=== PATIENT | male | born 1965 | race Caucasian/White ===

== ENCOUNTER 2018-06-10 15:57 | Inpatient (IN) | payer MEDICARE ==
--- NOTE | 2018-06-10 16:48 | ED Physician Chart ---
ED Chief Complaint/HPI - Patient Information Date Seen:: 06/10/18 Time Seen:: 15:50 Chief Complaint:: AMS History of Present Illness:: onset x 2 days of AMS and ALOC; no report of trauma, LOC, H/As, S/T, neck pain, cough, C/P, SOB, Abd. Pain, A/N/V/D/C, fever, chills, or urinary s/s Allergies:: Allergies Allergy/AdvReac Type Severity Reaction Status Date / Time ibuprofen Allergy Verified 06/10/18 16:30 Historian:: Patient, EMS Review:: Nurse's Note Reviewed, Old Chart Reviewed, EMS run form Reviewed <Severino Velez - Last Filed: 06/10/18 17:56> - Patient Information Allergies:: Allergies Allergy/AdvReac Type Severity Reaction Status Date / Time ibuprofen Allergy Verified 06/10/18 16:30 Vitals:: Vital Signs - 8 hr 06/10/18 06/10/18 17:06 17:08 Temp 97.4 F HR 60 RR 18 BP 132/75 132/75 O2 Sat % 96 <Veronica Urias - Last Filed: 06/10/18 20:27> ED Review of Systems - Review of Systems General/Constitutional: No fever, No chills, No weight loss, No weakness, No diaphoresis, No edema, No loss of appetite Skin: No skin lesions, No rash, No bruising Head: No headache, No light-headedness Eyes: No loss of vision, No pain, No diplopia ENT: No earache, No nasal drainage, No sore throat, No tinnitus Neck: No neck pain, No swelling, No thyromegaly, No stiffness, No mass noted Cardio Vascular: No chest pain, No palpitations, No PND, No orthopnea, No edema Pulmonary: No SOB, No cough, No sputum, No wheezing GI: No nausea, No vomiting, No diarrhea, No pain, No melena, No hematochezia, No constipation, No hematemesis G/U: No dysuria, No frequency, No hematuria, Nocturia Musculoskeletal: No bone or joint pain, No back pain, No muscle pain Endocrine: No polyuria, No polydipsia Psychiatric: Prior psych history, Depression, No anxiety, No suicidal ideation, No homicidal ideation, No auditory hallucination, No visual hallucination Hematopoietic: No bruising, No lymphadenopathy Allergic/Immuno: No urticaria, No angioedema Neurological: No syncope, No focal symptoms, No weakness, No paresthesia, No headache, No seizure, No dizziness, No confusion, No vertigo <Severino Velez - Last Filed: 06/10/18 17:56> ED Past Medical History - Past Medical History Obtainable: Yes Past Medical History: HTN, DM, CVA/TIA, ESRD, Dementia, Cataract Family History: Diabetes Melitus, HTN Social History: Non Smoker, No Alcohol, No Drug Use, Single, Care Facility Surgical History: other (Dialysis AV Shunt; Prostate Surgery) Psychiatricy History: Depression, Dementia Medication: Reviewed <Severino Velez - Last Filed: 06/10/18 17:56> Family Medical History - Family Member Mother History Unknown: Yes <Severino Velez - Last Filed: 06/10/18 17:56> ED Physical Exam - Physical Examination General/Constitutional: Awake, Well-developed, well-nourished, Alert, No distress, GCS 15, Non-toxic appearing, Ambulatory Head: Atraumatic Eyes: Lids, conjuctiva normal, PERRL, EOMI Skin: Nl inspection, No rash, No skin lesions, No ecchymosis, Well hydrated, No lymphadenopathy ENMT: External ears, nose nl, TM canals nl, Nasal exam nl, Lips, teeth, gums nl , Oropharynx nl, Tonsils nl Neck: Nontender, Full ROM w/o pain, No JVD, No nuchal rigidity, No bruit, No mass, No stridor Respiratory: Nl effort/Exclusion, Clear to Auscultation, No Wheeze/Rhonchi/Rales Cardio Vascular: RRR, No murmur, gallop, rubs, NL S1 S2, Carotid/Femoral/Distal pulses equal bilaterally GI: No tenderness/rebounding/guarding, No organomegaly, No hernia, Normal BS's, Nondistended, No mass/bruits, No McBurney tenderness : No CVA tenderness Extremities: No tenderness or effusion, Full ROM, normal strength in all extremities, No edema, Normal digits & nails Neuro/Psych: Alert/oriented, DTR's symmetric, Normal sensory exam, Normal motor strength, Judgement/insight normal, Mood normal, Normal gait, No focal deficits Misc: Normal back, No paraspinal tenderness <Severino Velez - Last Filed: 06/10/18 17:56> ED Labs/Radiology/EKG Results - Lab Results Comments:: Reviewed - Radiology Results Comments:: CXR: CM; NAD - EKG Interpretations EKG Time:: 17:30 Rate & Rhythm: 59; SB Comments:: RBBB; T-Wave Inversions; Old ASMI <Severino Velez - Last Filed: 06/10/18 17:56> - Lab Results Results: Laboratory Tests 06/10/18 06/10/18 06/10/18 16:50 16:50 16:50 WBC 5.6 RBC 4.06 L Hgb 12.6 Hct 38.9 L MCV 95.8 MCH 31.0 H MCHC Differential 32.3 RDW 15.4 Plt Count 162 MPV 7.1 Neutrophils % 65.6 Lymphocytes % 15.3 L Monocytes % 7.1 Eosinophils % 9.6 H Basophils % 2.4 H PT 11.1 INR 1.07 Sodium 135 L Potassium 5.8 H Chloride 101 Carbon Dioxide 27.6 Anion Gap 12.2 BUN 54 H Creatinine 6.4 H* Est GFR ( Amer) 11.8 Est GFR (Non-Af Amer) 9.7 BUN/Creatinine Ratio 8.4 Glucose 76 Calcium 8.1 L Total Bilirubin 0.4 AST 25 ALT 23 Alkaline Phosphatase 116 H Creatine Kinase 59 Troponin I B-Natriuretic Peptide Total Protein 5.4 L Albumin 2.7 L Globulin 2.7 Albumin/Globulin Ratio 1.0 Triglycerides 91 Cholesterol 92 LDL Cholesterol Direct 41 L HDL Cholesterol 37 Amylase 140 H Lipase 193 H Urine Source Urine Color Urine Clarity Urine pH Ur Specific [place] Urine Protein Urine Glucose (UA) Urine Ketones Urine Blood Urine Nitrate Urine Bilirubin Urine Urobilinogen Ur Leukocyte Esterase Urine RBC Urine WBC Ur Epithelial Cells Urine Bacteria 06/10/18 06/10/18 06/10/18 16:50 16:50 18:00 WBC RBC Hgb Hct MCV MCH MCHC Differential RDW Plt Count MPV Neutrophils % Lymphocytes % Monocytes % Eosinophils % Basophils % PT INR Sodium Potassium Chloride Carbon Dioxide Anion Gap BUN Creatinine Est GFR ( Amer) Est GFR (Non-Af Amer) BUN/Creatinine Ratio Glucose Calcium Total Bilirubin AST ALT Alkaline Phosphatase Creatine Kinase Troponin I 0.01 B-Natriuretic Peptide 3920.0 H Total Protein Albumin Globulin Albumin/Globulin Ratio Triglycerides Cholesterol LDL Cholesterol Direct HDL Cholesterol Amylase Lipase Urine Source CLEAN C Urine Color RED Urine Clarity CLOUDY Urine pH 7.5 Ur Specific [place] 1.000 L Urine Protein >300 H Urine Glucose (UA) NEGATIVE Urine Ketones NEGATIVE Urine Blood LARGE H Urine Nitrate NEGATIVE Urine Bilirubin NEGATIVE Urine Urobilinogen 0.2 Ur Leukocyte Esterase LARGE H Urine RBC 2-5 H Urine WBC 50-100 H Ur Epithelial Cells NONE SEEN Urine Bacteria MANY H <Veronica rUias - Last Filed: 06/10/18 20:27> ED Septic Shock - . Is Septic Shock (SBP<90, OR Lactate>4 mmol\\L) present?: No <Severino Velez - Last Filed: 06/10/18 17:56> - . Is Septic Shock (SBP<90, OR Lactate>4 mmol\\L) present?: No - <6hrs of presentation: Vital Signs: Vital Signs - 8 hr 06/10/18 06/10/18 17:06 17:08 Temp 97.4 F HR 60 RR 18 BP 132/75 132/75 O2 Sat % 96 <Veronica Urias - Last Filed: 06/10/18 20:27> ED Reassessment (Disposition) - Reassessment Reassessment Condition:: Improved - Diagnosis Diagnosis:: AMS; ALOC; ESRD; Hyponatremia; Hyperkalemia; Hypocalcemia; Elevated BNP; CHF; Pancreatitis <Severino Velez - Last Filed: 06/10/18 17:56> - Reassessment Reassessment:: Pt had a large bowel movement after kayexalate. Pt stated "rectal pain is better but [place] didn't help." Admit pt to med surg under Dr. Anthony's service. Reassessment Condition:: Improved - Patient Disposition Discharge/Transfer:: Acute Care w/in this hosp Admitting Medical Physician:: Gabriel Atnhony <Veronica Urias - Last Filed: 06/10/18 20:27>
[2018-06-10 17:21] LABS: ALBUMIN 2.7 gm/dL (4.2-5.5); ANION GAP 12.2 (7.0-16.0); BILIRUBIN,TOTAL 0.4 mg/dL (0.3-1.0); CALCIUM SERUM 8.1 mg/dL (8.6-10.3); CARBON DIOXIDE 27.6 mEq/L (21.0-31.0); GFR AFRICAN-AMERICAN 11.8 ml/min (>90); GFR NON AFRICAN-AMERICAN 9.7 ml/min; INR 1.07 (0.5-1.4); POTASSIUM SERUM 5.8 mEq/L (3.5-5.1); PROTHROMBIN TIME (TEST) 11.1 SECONDS (9.5-11.5); TOTAL PROTEIN,SERUM 5.4 gm/dL (6.0-8.3)
[2018-06-10 17:28] LABS: % BASOPHILS 2.4 % (0.0-2.0); % EOSINOPHILS 9.6 % (0.0-5.0); % LYMPHOCYTES 15.3 % (20.0-50.0); % MONOCYTES 7.1 % (2.0-10.0); % NEUTROPHILS 65.6 % (40.0-80.0); BASOPHILE ABSOLUTE 0.1 Th/cumm (0-0.2); EOSINOPHILE ABSOLUTE 0.5 Th/cmm (0.1-0.4); HEMATOCRIT 38.9 % (41.0-60); HEMOGLOBIN 12.6 gm/dL (12-16); LYMPHOCYTE ABSOLUTE 0.9 Th/cmm (1.5-3.0); MEAN CELL VOLUME 95.8 fl (80-99); MEAN CORPUSCULAR HGB CONC 32.3 pg (28.0-36.0); MEAN PLATELET VOLUME 7.1 fl; MONOCYTE ABSOLUTE 0.4 Th/cmm (0.3-1.0); NEUTROPHILE ABSOLUTE 3.7 Th/cmm (1.8-8.0); PLATELET COUNT 162 Th/cmm (150-400); RED BLOOD COUNT 4.06 Mil/cmm (4.30-5.70); RED CELL DISTRIBUTION WIDTH 15.4 % (11.5-20.0); WHITE BLOOD COUNT 5.6 Th/cmm (4.8-10.8)
[2018-06-10 17:50] LABS: CREATININE - SERUM 6.4 mg/dL (0.7-1.3)
[2018-06-10 18:19] LABS: URINE SOURCE CLEAN C
[2018-06-10 18:54] LABS: URINE BILIRUBIN NEGATIVE (NEGATIVE); URINE CLARITY CLOUDY (CLEAR); URINE COLOR RED; URINE GLUCOSE (UA) NEGATIVE (NEGATIVE); URINE KETONE NEGATIVE (NEGATIVE); URINE MICROSCOPIC INDICATED? YES
[2018-06-10 18:55] LABS: URINE BLOOD LARGE (NEGATIVE); URINE LEUKOCYTE ESTERASE LARGE (NEGATIVE); URINE NITRATE NEGATIVE (NEGATIVE); URINE PH 7.5 (4.6 - 8.0); URINE PROTEIN >300 mg/dL (NEGATIVE); URINE UROBILINOGEN 0.2 E.U./dL (0.2 - 1.0)
[2018-06-10 18:56] LABS: URINE BACTERIA MANY /hpf (NONE SEEN); URINE EPITHELIAL CELLS NONE SEEN /lpf (FEW); URINE WBC 50-100 /hpf (0-5)
[2018-06-10] MEDS ORDERED: Morphine Sulfate 2 mg/mL 1mL Syr IV PRN (20:23)
[2018-06-10] MEDS ORDERED: cefTRIAXone 1 GM in Sodium Chloride 0.9% 50 ML IV SCH (20:23)
[2018-06-10] MEDS ORDERED: Morphine Sulfate 2 mg/mL 1mL Syr ONE (20:33)
[2018-06-10 23:41] VITALS: BP 145/79
[2018-06-11] MEDS ORDERED: Heparin Sod 1,000 Units/mL 10ml HD SCH ×3 (00:30→00:45)
[2018-06-11] MEDS ORDERED: Heparin Sod 1,000 Units/mL 10ml HD ONE ×3 (01:00→02:30)
[2018-06-11 07:52] LABS: % BASOPHILS 2.5 % (0.0-2.0); % EOSINOPHILS 7.8 % (0.0-5.0); % LYMPHOCYTES 13.7 % (20.0-50.0); % MONOCYTES 9.2 % (2.0-10.0); % NEUTROPHILS 66.8 % (40.0-80.0); BASOPHILE ABSOLUTE 0.1 Th/cumm (0-0.2); EOSINOPHILE ABSOLUTE 0.4 Th/cmm (0.1-0.4); HEMATOCRIT 41.8 % (41.0-60); HEMOGLOBIN 13.7 gm/dL (12-16); LYMPHOCYTE ABSOLUTE 0.6 Th/cmm (1.5-3.0); MEAN CELL VOLUME 95.9 fl (80-99); MEAN CORPUSCULAR HEMOGLOBIN 31.4 pg (26.0-30.0); MEAN CORPUSCULAR HGB CONC 32.7 pg (28.0-36.0); MEAN PLATELET VOLUME 6.8 fl; MONOCYTE ABSOLUTE 0.4 Th/cmm (0.3-1.0); NEUTROPHILE ABSOLUTE 3.1 Th/cmm (1.8-8.0); PLATELET COUNT 177 Th/cmm (150-400); RED BLOOD COUNT 4.36 Mil/cmm (4.30-5.70); RED CELL DISTRIBUTION WIDTH 15.3 % (11.5-20.0); WHITE BLOOD COUNT 4.6 Th/cmm (4.8-10.8)
[2018-06-11 08:06] LABS: ANION GAP 13.9 (7.0-16.0); GFR AFRICAN-AMERICAN 13.2 ml/min (>90); GFR NON AFRICAN-AMERICAN 10.9 ml/min; POTASSIUM SERUM 4.9 mEq/L (3.5-5.1)
[2018-06-11 08:12] LABS: CREATININE - SERUM 5.8 mg/dL (0.7-1.3)
--- NOTE | 2018-06-11 08:40 | Diagnostic Imaging Report ---
Chest x-ray single view History: Chest pain Comparison: None The heart is enlarged.. No focal pulmonary parenchymal processes. No hilar or mediastinal abnormalities. Impression: No acute abnormalities
[2018-06-11] MEDS ORDERED: POLYETHYLENE GLYCOL 3350 17 GM PACK PO SCH (10:00)
--- NOTE | 2018-06-11 14:51 | Consultation ---
DATE OF CONSULTATION: 06/10/2018 LOCATION: [facility], room #16, bed B. ATTENDING PHYSICIAN: Dr. Anthony. Thank you very much, Dr. Anthony, for allowing me to participate in the management of this patient of yours. IDENTIFICATION: This is an [place] Citizen speaking 52-year-old gentleman who is known case of hypertension, anemia, CKD 5, on chronic hemodialysis for about 1 year through left upper extremity AV fistula. The patient also has a history of diabetes mellitus, CVA, dementia, and cataracts. The patient was doing fairly well, came to the Emergency Room with complaint of severe abdominal pain. Upon evaluation in the Emergency Room, the patient was found to have severe constipation, hyperkalemia. The patient received Kayexalate. The patient had emergency dialysis last night due to his hyperkalemia and fluid overload. The patient has improved. The patient is conscious and alert at this time. Renal consultation has been requested. The patient denies chest pain, shortness of breathing. The patient did have abdominal pain, which improved after Kayexalate given to him yesterday. The patient states that he was constipated over about 5-6 days prior to coming to hospital. No complaint of fever. No complaint of vomiting. No complaint of chest pain. No complaint of seizures, loss of consciousness. PAST MEDICAL AND SURGICAL HISTORY: Diabetes mellitus, hypertension, CKD 5, left upper extremity AV fistula. ALLERGIES: THE PATIENT IS ALLERGIC TO IBUPROFEN. SOCIAL HISTORY: The patient lives in a longterm in [place]. No history of alcoholism or smoking or drug use at this time. PHYSICAL EXAMINATION: GENERAL: A 52-year-old male patient, conscious, alert. VITAL SIGNS: Temperature 97.4, heart rate 60, blood pressure 132/75. HEENT: Head normocephalic, atraumatic. Eyes, sclerae is nonicteric. Conjunctivae are pale. Pupils not reactive. NECK: No stiffness. Jugular venous pressure normal. No carotid bruit. LUNGS: Good air entry. No rales or rhonchi. HEART: Regular, no rub, or gallop. ABDOMEN: Soft, not distended. Bowel sounds are present. EXTREMITIES: No edema of the legs. No calf tenderness. Left upper extremity AV fistula intact. LABORATORY DATA: WBC 4.6, hemoglobin 13.7, creatinine 5.8, potassium improved from 5.8 to 4.9, calcium 8.0. IMPRESSION: 1. Chronic kidney disease 5, on chronic hemodialysis. 2. Hyperkalemia, improved. 3. Abdominal pain, relieved. 4. Diabetes mellitus. 5. Hypertension. 6. Anemia secondary to chronic kidney disease. PLAN: The patient's renal status is stable for discharge today. Discussed with Dr. Anthony at length. The patient is not happy where he is going for dialysis at this time since he does not have a same physician following him all the time. He would like to change the dialysis center for that reason. Different option has been given to the patient. medical planner and the patient will decide on further care. Case has been discussed with Dr. Anthony at length. Thank you very much for allowing me to participate in the management of this patient. JOB# [id number]
--- NOTE | 2018-06-11 16:02 | History & Physical ---
ADMIT DATE: 06/10/2018 CHIEF COMPLAINT: Severe rectal pain. HISTORY OF PRESENT ILLNESS: This is a 52-year-old male with underlying history of ESRD, on hemodialysis; hypertension; prior history of stroke; hyperlipidemia; hypothyroidism; chronic liver disease and ascites, who was admitted for evaluation of severe rectal pain. The patient denied any associated abdominal pain, had an episode of small vomiting last night, but no vomiting since then. No fever, no chills, no nausea, no chest pain, no trouble breathing or complaint reported. PAST MEDICAL HISTORY: As per HPI. PAST SURGICAL HISTORY: Denies any significant past surgical history. AV graft placement in the past. FAMILY HISTORY: Noncontributory. SOCIAL HISTORY: Lives at shelter facility. No current alcohol, tobacco or street drug use. Positive for alcohol use in the past. FAMILY HISTORY: Noncontributory. REVIEW OF SYSTEMS: As per HPI, 12-point system review is negative. PHYSICAL EXAMINATION: VITAL SIGNS: Temperature 97.9, pulse 60, respiration 19, blood pressure 140/100 and ox 98% on room air. GENERAL APPEARANCE: The patient is alert, awake, oriented, no apparent distress noted. HEART: S1 and S2 normal. LUNGS: Clear to auscultation. ABDOMEN: Soft. Ascites noted. No guarding. NEUROLOGIC: Alert, follows commands. No focal deficits. EXTREMITIES: Edema noted. AVAILABLE LABORATORY DATA AND IMAGING STUDIES: As noted. ASSESSMENT: 1. Rectal pain, most likely related to constipation, improved. 2. Constipation. 3. End-stage renal disease, on hemodialysis, Saturday, and Saturday. 4. Hypothyroidism. 5. Hypertension. 6. Hyperlipidemia. 7. Mental disorder. 8. Chronic liver disease with ascites. 9. Generalized weakness. PLAN: The patient was admitted to Med/Surg floor. The patient was seen by a forging press operator and a aircraft ordnance technician. The patient did receive dialysis last night. The patient feels much better. GI recommended no further workup and outpatient followup. The patient is asymptomatic. Home medications were reconciled. Will discharge the patient back to halfway facility with outpatient followup. Overall, the patient's condition seems stable. Plan of care discussed with nursing staff and patient. [facility]# [id number]
--- NOTE | 2018-06-12 00:55 | Consultation ---
DATE OF CONSULTATION: 06/11/[address] Anthony. HISTORY OF PRESENT ILLNESS: This is a 52-year-old male patient who has abdominal pain and rectal pain. Following this, the patient was brought to the Emergency Room. The patient had severe constipation. PAST MEDICAL HISTORY: Hyponatremia, hyperkalemia, diabetes mellitus type 2, insulin-dependent diabetes mellitus, diabetic CKD, stage V; end-stage renal disease, on dialysis; hypertension; iron-deficiency anemia; hyperlipidemia; major depression; insomnia; and vitamin D deficiency. FAMILY HISTORY: Unremarkable. SOCIAL HISTORY: No history of smoking, alcohol abuse. ALLERGIES: None. PHYSICAL EXAMINATION: VITAL SIGNS: Blood pressure 132/70, pulse 70, and respirations 20. HEAD: Normocephalic. No lumps or bumps. EYES: Pupils equal, reactive to light. Fundi show AV nicking, sclerae white, conjunctivae pink. NECK: Carotid 2+. Normal upstroke. JVD flat. Thyroid not palpable. Lymph nodes not palpable. CHEST: Shows increased AP diameter. No kyphosis, scoliosis. LUNGS: Bilateral bronchovesicular breath sounds. Occasional wheeze. No rales. HEART: PMI fifth intercostal space with lateral to midclavicular line. S1, S2. No S3, S4, soft systolic murmur. ABDOMEN: Soft. Liver, spleen not palpable. No organomegaly. Bowel sounds active. NEUROLOGIC: No focal neurological deficit. EXTREMITIES: Peripheral pulses 2+. No pedal edema. CLINICAL IMPRESSION: 1. Severe constipation with rectal pain. 2. Hyponatremia. 3. Hyperkalemia. 4. Diabetes mellitus type 2. 5. Insulin-dependent diabetes mellitus. 6. Diabetic chronic kidney disease, stage V. 7. End-stage renal disease, on dialysis. 8. Hypertension. 9. Iron-deficiency anemia. 10. Hyperlipidemia. 11. Major depression. 12. Insomnia, 13. Vitamin D deficiency. PLAN: The patient to continue dialysis. The patient was given lactulose for bowel movement. JOB# [id number]
--- NOTE | 2018-06-12 03:34 | Consultation ---
DATE OF CONSULTATION: 06/11/2018 GI CONSULTATION CONSULTING PHYSICIAN: Dr. Gabriel Anthony. REASON FOR CONSULTATION: Rectal pain. HISTORY OF PRESENT ILLNESS: The patient is a 52-year-old male who reports a past medical history significant for liver cirrhosis, coronary artery disease, congestive heart failure, previous stroke, comes into the hospital with one day of pain in his rectum. The patient notes that he started having pain in the rectal area yesterday morning at his nursing facility and for this reason, he was transferred to the hospital Emergency Room and admitted to the hospital; however, he was given some apparently Kayexalate by the Emergency Room and had a large bowel movement in house. No more further pain at this point. He does report having a colonoscopy about 2 years ago and that he had 8 polyps found and was told to repeat in 3 years at the current time. He has no other symptoms. PAST MEDICAL HISTORY: Liver cirrhosis, congestive heart failure, previous stroke. PAST SURGICAL HISTORY: He denies abdominal surgery. FAMILY HISTORY: Noncontributory. SOCIAL HISTORY: The patient is currently at nursing facility. He denies alcoholism or illicit drug use. ALLERGIES: There is reported allergy to IBUPROFEN. REVIEW OF SYSTEMS: A 12-point review of systems was performed. The patient is negative other than the pertinent positives mentioned in history of present illness. CURRENT MEDICATIONS: Include Zofran, morphine, ceftriaxone. PHYSICAL EXAMINATION: VITAL SIGNS: Blood pressure is 140/100, pulse 60 beats per minute, temperature 97.9, oxygenation 99%. GENERAL: The patient is lying on his side flat in bed. He is alert and oriented x 3, in no apparent distress. HEAD, EYES, EARS, NOSE, AND THROAT: Normocephalic, atraumatic appearing head. Pupils are equal and reactive to light. Extraocular muscles appear to be intact. There are moist mucous membranes. NECK: Supple. No JVD or thyromegaly or lymphadenopathy. CHEST: Clear to auscultation bilaterally. CARDIOVASCULAR: S1, S2 present. Regular rate and rhythm. ABDOMEN: Soft, nontender to palpation. No obvious guarding, rebound or fluid distention. EXTREMITIES: 1+ pitting edema bilaterally. Pulses are not present. SKIN: There is no obvious jaundice. LABORATORY DATA: White blood cell count 4.6, hemoglobin 13.7, platelet count 177. INR is 1.07. Sodium 140, BUN 44, creatinine 5.8, total bilirubin 0.4, AST 25, ALT 23. BNP 3920, lipase 190. IMAGING: No abdominal imaging was performed. IMPRESSION: This is a 52-year-old male with history of liver cirrhosis, previous stroke, congestive heart failure, admitted to the hospital with rectal pain. 1. Rectal pain, now resolved. 2. Constipation. 3. Chronic kidney disease. 4. History of stroke. 5. History of congestive heart failure. DISCUSSION: Most likely this patient was suffered constipation and had rectal distention causing pain sensation. He now feels much better after passing stool. He likely may have some hemorrhoid irritation as well. However, I did offer him the chance of doing colonoscopy now given he has had a number of polyps, but he wants to wait on this and he apparently has an appointment with me later this year. This is reasonable as he is no longer symptomatic and not having any evidence of any bleeding. RECOMMENDATIONS: 1. We will forego colonoscopy at the current time at the patient's request. This can be done later in this year when sees me as an outpatient. 2. The patient should be on a bowel regimen to prevent constipation going forward. 3. Management of the patient's kidney disease and heart disease as per primary. Thank you for allowing me to participate in this patient's care. Please call with any further questions. JOB# [id number]
== END 2018-06-11 16:55 | DRG 391 ==
LOC: ER 15:57 → MSI 20:35 → TELE 06-11 10:25
PROVIDERS: ADMIT Family Medicine; ATTEND Family Medicine
PROC: 5A1D70Z Performance of Urinary Filtration, Intermittent, Less than 6 Hours Per Day (ICD-10-PCS; principal; 2018-06-10)
DX: K59.00 Constipation, unspecified (principal); K85.90 Acute pancreatitis without necrosis or infection, unspecified; N18.6 End stage renal disease; E87.1 Hypo-osmolality and hyponatremia; I13.2 Hypertensive heart and chronic kidney disease with heart failure and with stage 5 chronic kidney disease, or end stage renal disease; R18.8 Other ascites; F03.90 Unspecified dementia, unspecified severity, without behavioral disturbance, psychotic disturbance, mood disturbance, and anxiety; F32.9 Major depressive disorder, single episode, unspecified; E11.22 Type 2 diabetes mellitus with diabetic chronic kidney disease; E87.5 Hyperkalemia; E03.9 Hypothyroidism, unspecified; K76.9 Liver disease, unspecified; F99 Mental disorder, not otherwise specified; I50.9 Heart failure, unspecified; I25.10 Atherosclerotic heart disease of native coronary artery without angina pectoris; K62.89 Other specified diseases of anus and rectum; D63.1 Anemia in chronic kidney disease; E78.5 Hyperlipidemia, unspecified; E55.9 Vitamin D deficiency, unspecified; G47.00 Insomnia, unspecified; Z79.4 Long term (current) use of insulin; Z99.2 Dependence on renal dialysis; Z88.8 Allergy status to other drugs, medicaments and biological substances; Z83.3 Family history of diabetes mellitus; Z82.49 Family history of ischemic heart disease and other diseases of the circulatory system; Z86.73 Personal history of transient ischemic attack (TIA), and cerebral infarction without residual deficits
CPT/HCPCS: 36415-UA; 71045-TC; 80048-TC; 80053-TC; 80061-TC; 81001-TC; 82150-TC; 82550-TC; 82948-90; 83690-TC; 83880-TC; 84484-TC; 85025-TC; 85610-TC; 87086-90; 90937; 93005; 94760; J0696; J1644; J2270; J7030; Z7610